=== PATIENT | female | born 1960 | race Caucasian/White ===

== ENCOUNTER 2016-09-05 15:55 | Emergency (ER) | payer OTHER ==
--- NOTE | 2016-09-05 16:59 | RAD ---
EXAM DESCRIPTION: Tibia/Fibula,Left CLINICAL HISTORY: pain after fall COMPARISON: None. FINDINGS: AP and lateral views of the left tibia and fibula were submitted. There is spurring at the intertibial spine. There is no discrete acute fracture or dislocation. Bone mineralization is within normal limits. There is no radiopaque foreign body material. IMPRESSION: No acute fracture or dislocation. Electronically signed by: Arnoldo Oh MD 09/05/2016 4:58 PM CDT
--- NOTE | 2016-09-05 17:01 | RAD ---
EXAM DESCRIPTION: Nasal Bones CLINICAL HISTORY: 56 years Female, fall onto face COMPARISON: None. FINDINGS: Frontal and lateral view of the nasal bone were submitted. There is no discrete acute nasal fracture. There are no fluid levels within the maxillary sinuses. IMPRESSION: No acute abnormalities. Electronically signed by: Arnoldo Oh MD 09/05/2016 5:00 PM CDT
--- NOTE | 2016-09-05 17:18 | ED.PDOC ---
History of Present Illness - General Chief Complaint: Trauma Stated Complaint: nosebleed and pain in left osborn Time Seen by Provider: 09/05/16 16:18 Source: patient Exam Limitations: no limitations - History of Present Illness Initial Comments: Patient presents after falling foreward in a parking lot. She hit her left osborn and face. She complains of a bleeding nose and left osborn pain. She had no problem ambulating after the fall. The bleeding of the nose has stopped upon arrival at the ED. Denies previous injuries to the areas. She did not lose consciousness. No paresthesias. Timing/Duration: abrupt Severity: moderate EENT Location: nose Prearrival Treatment: no prearrival treatment Improving Factors: nothing Worsening Factors: nothing Associated Symptoms: other - left osborn pain Allergies/Adverse Reactions: Allergies Penicillins Allergy (Verified 09/05/16 17:11) Alejandrina Review of Systems - Review of Systems Constitutional: States: no symptoms reported EENTM: States: see HPI Respiratory: States: no symptoms reported Cardiology: States: no symptoms reported Gastrointestinal/Abdominal: States: no symptoms reported Genitourinary: States: no symptoms reported Musculoskeletal: States: see HPI Skin: States: no symptoms reported Neurological: States: no symptoms reported Endocrine: States: no symptoms reported Hematologic/Lymphatic: States: no symptoms reported Physical Exam - Physical Exam General Appearance: Alert Eye Exam: bilateral normal Ear Exam: bilateral ear: auricle normal, canal normal, TM normal Nasal Exam: dried blood Throat Exam: normal mouth inspection Neck: non-tender, full range of motion, supple Cardiovascular/Respiratory: regular rate, rhythm Abdominal Exam: non-tender Neurologic: director of training II-XII nml as tested, no motor/sensory deficits, alert Skin Exam: normal color, other - contusion over anterior left tibia, mid-shift. TTP with mild swelling Progress - Progress Progress: 09/05/16 17:19 Radiographs of the nasal bones and left tibia/fibula showed no fractures nor dislocations. Departure - Departure Clinical Impression: Nosebleed, Contusion of left tibia, Contusion of nose Disposition: Discharge to Home or Self Care Condition: Good Diet: resume usual diet Activity: increase activity as tolerated Additional Instructions: Tylenol or ice only for pain control. Follow up with your regular doctor or Ear , nose, and throat doctor if pain of the nose does not resolve in one week, for continued bleeding, malformation of the nose, or inability to breath through both nostrils.
[2016-09-05 19:36] VITALS: TEMP 98.6; O2SAT 99
[2016-09-05 19:41] VITALS: BP 156/72
== END 2016-09-05 17:25 | disposition home or self-care (01) ==
LOC: ER 15:55
DX: R04.0 Epistaxis (principal); S00.33XA Contusion of nose, initial encounter; S80.12XA Contusion of left lower leg, initial encounter; Z88.0 Allergy status to penicillin; W19.XXXA Unspecified fall, initial encounter; Y92.481 Parking lot as the place of occurrence of the external cause

== ENCOUNTER 2018-10-11 09:00 | Day surgery (SDC) | payer OTHER ==
[2018-10-11] MEDS ORDERED: MOXIFLOXACIN HCL (OPHTH) 1 DROP DROPS ONE (09:06)
[2018-10-11] MEDS ORDERED: TROP 1%/CYCLOPEN 1%/PHENYL 2% DROPS ONE (09:06)
[2018-10-11] MEDS ORDERED: PROPARACAINE 0.5% OPHTH SOL 15 ML BTTL ONE (09:06)
[2018-10-11] MEDS ORDERED: PROPARACAINE 0.5% OPHTH SOL 15 ML BTTL RIGHT_EYE ONE ×2 (10:02→10:50)
== END 2018-10-11 10:56 | disposition home or self-care (01) ==
LOC: AMB 09:00
PROVIDERS: ATTEND Ophthalmology
DX: H26.492 Other secondary cataract, left eye (principal); Z88.0 Allergy status to penicillin; Z88.5 Allergy status to narcotic agent

== ENCOUNTER → 2018-10-25 | Day surgery (SDC) | payer OTHER ==
[~2018-10-25] MED LIST: MOXIFLOXACIN HCL (OPHTH) 1 DROP DROPS ONE; PROPARACAINE 0.5% OPHTH SOL 15 ML BTTL ONE; TROP 1%/CYCLOPEN 1%/PHENYL 2% DROPS ONE
== END ==
LOC: AMB 05:26
PROVIDERS: ATTEND Ophthalmology
DX: H26.493 Other secondary cataract, bilateral (principal); Z88.0 Allergy status to penicillin